=== PATIENT | female | born 1945 | race Caucasian/White ===

== ENCOUNTER 2023-09-04 16:19 | Emergency (ER) | payer MEDICARE, OTHER, SELFPAY ==
[2023-09-04] VITALS (15 sets, daily range): BP systolic 110–158; BP diastolic 64–92; PULSE 77–112; TEMP 37.2; O2SAT 95–100; BMI 17.2
--- NOTE | 2023-09-04 17:17 | ED_ITS ---
HPI HPI - General Adult General Chief complaint: Nausea/Vomiting/Diarrhea Stated complaint: PAIN WHEN USING BATHROOM Time Seen by Provider: 09/04/23 17:04 Source: patient and family Mode of arrival: Wheelchair History of Present Illness HPI narrative: This patient is here with her family. She has never been to this institution before she is got a lot of medical problems. They wonder do to come to a different hospital because they heard there is a different medical staffing here. She is living at home with family but she is gone multitude of medical problems including history of CHF alpha-1 antitrypsin deficiency Raynaud's disease scleroderma. She has been on diuretics and steroids recently. She her main complaint today is that she has rectal pain and having trouble controlling her bowels with diarrhea. She is on chronic oxygen therapy at 4 L. She needs a lot of assistance at home but has not been into an assisted care yet. She says she is too weak to walk and can possibly be discharged home. Patient is also been told that just recently her white blood cell count was elevated and they were concerned about infection Records were obtained from [place] that indicates she has a history of heart failure, had pericardial effusion, has COPD and pulmonary hypertension/emphysema. Related Data Allergies Allergy/AdvReac Type Severity Reaction Status Date / Time codeine Allergy Unknown Verified 09/04/23 16:40 erythromycin base Allergy Unknown Verified 09/04/23 16:43 meperidine [From Demerol] Allergy Unknown Verified 09/04/23 16:40 neomycin Allergy Unknown Verified 09/04/23 16:40 Opioid HPI Opioid Management Most Recent Opioid Data: Last ED Pain Assessment 09/04/23 18:19 Exam Narrative Exam Narrative: Awake alert delirious appears stated age both acute and chronically ill. She actually has a Raynaud's phenomenon of her left hand right now. She says it gets like that when he gets cold. Here however she actually is a good historian. She is not confused no altered mental status. She denies any headache or neck pain. She has no nuchal rigidity. HEENT shows evidence of anemia and decreased hydration status. Her lungs were clear with some scattered rhonchi. Heart sounds are regular with a rate of 105 tachycardic but I do not hear a murmur or gallop. Belly is soft and supple with no tenderness guarding o r rebound. She is very thin and cachectic. Her legs show decreased skin turgor. No edema. Pulses are present. Neurological examination shows no focal neurological deficits. Rectal examination shows soft brown stool at the rectal ampulla and a little bit of perianal ulceration. There is no active bleeding. Constitutional Vital Signs, click to edit/add: Last Vital Signs Temp 98.9 F 09/04/23 16:34 Pulse 92 H 09/04/23 18:07 Resp 15 09/04/23 18:07 BP 122/78 09/04/23 18:00 Pulse Ox 98 09/04/23 18:07 O2 Flow Rate 4 09/04/23 18:07 Course Vital Signs Vital signs: Vital Signs Temperature 98.9 F 09/04/23 16:34 Pulse Rate 80 09/04/23 16:34 Respiratory Rate 16 09/04/23 16:34 Blood Pressure 114/82 09/04/23 16:34 Temperature 98.9 F 09/04/23 16:34 Pulse Rate 92 H 09/04/23 18:07 Respiratory Rate 15 09/04/23 18:07 Blood Pressure 122/78 09/04/23 18:00 Pulse Oximetry 98 09/04/23 18:07 Oxygen Delivery Flow Rate 4 09/04/23 18:07 Medical Decision Making Lab Data Labs: Lab Results 09/04/23 09/04/23 Range/Units 17:41 17:50 WBC 37.1 H* (4.0-11.0) 10^3/uL RBC 4.61 (4.20-5.40) 10^6/uL Hgb 14.4 (12.0-16.0) g/dL Hct 42.5 (36.0-48.0) % MCV 92.2 (81.0-99.0) fL MCH 31.2 (26.7-34.0) pg MCHC 33.9 (29.9-35.2) g/dL RDW 14.3 (11.0-15.0) % Plt Count 210 (150-450) 10^3/uL MPV 10.3 (9.5-13.5) fL Urine Color Yellow (YELLOW) Urine Clarity Clear (CLEAR) Urine pH 6.0 (5.0-9.0) Ur Specific [place] 1.020 (1.005-1.025) Urine Protein Negative (NEG/TRACE) mg/dL Urine Glucose (UA) 500 A (NEGATIVE) mg/dL Urine Ketones Negative (NEGATIVE) mg/dL Urine Occult Blood Negative (NEGATIVE) Urine Nitrite Negative (NEGATIVE) Urine Bilirubin Negative (NEGATIVE) Urine Urobilinogen 0.2 (0.2-1.0) EU/dL Ur Leukocyte Esterase Negative (NEGATIVE) Discharge Plan Discharge Chief Complaint: Nausea/Vomiting/Diarrhea Clinical Impression: Weakness Patient Disposition: Still a Patient Print Language: Kinyarwanda Referrals: Eula Zaragoza [employer] [Primary Care Provider] - 1 week
--- NOTE | 2023-09-04 17:18 | ECG_ITS ---
The [facility] Test Date: 2023-09-04 Pat Name: ANSHU NEVILLE Department: Room: - Gender: Female [employer]: : 1945 Requested By: Order Number: [id number] Reading MD: ABEL RECINOS Measurements Intervals [place] Rate: 105 P: 60 AL: 132 QRS: 194 QRSD: 88 T: 67 QT: 342 QTc: 403 Interpretive Statements 1120 Sinus tachycardia 1570 with occasional ventricular premature complexes 5130 Right ventricular hypertrophy 9150 abnormal ECG No previous ECG available for comparison Electronically Signed On 09-05-2023 8:06:59 EDT by ABEL RECINOS
--- NOTE | 2023-09-04 17:18 | XR_ITS ---
The [address] [address] Patient Name: ANSHU NEVILLE MRN: [id number] date: 1945 Sex: F Assigned Patient Location: ER Current Patient Location: ED.MAIN Accession/Order Number: [id number] Exam Date: 09/04/2023 17:44 Report Date: 09/04/2023 18:56 At the request of: DARA NG Procedure: XR chest 1V EXAM: XR chest 1V HISTORY: Congestive heart failure; technologist notes state congestive heart failure and diarrhea. COMPARISON: Chest radiograph dated 01/09/2016. TECHNIQUE: AP erect portable views of the chest performed. FINDINGS: The trachea is unremarkable. The heart size is upper limits of normal to slightly prominent. There is mild atheromatous calcification along the thoracic aorta. There is mild patchy consolidation at the right lung base. There is no pleural effusion or pulmonary vascular congestion. There is no pneumothorax or acute osseous and amount he. The bony structures are osteopenic. There is slight dextro scoliosis of the thoracic spine. XR/XR chest 1V IMPRESSION: There is mild patchy opacity at the right lung base. There is no pleural effusion or pulmonary vascular congestion. Electronically authenticated by: AURA DONALDSON Date: 09/04/2023 18:56
[2023-09-04] MEDS: MORPHINE SULFATE 2 MG/ML SYRINGE IV (17:35)
[2023-09-04] MEDS: 0.9 % SODIUM CHLORIDE 1,000 ML 999 ML IV (17:35)
[2023-09-04 18:02] LABS: Hematocrit 42.5 % (36.0-48.0); Hemoglobin 14.4 g/dL (12.0-16.0); Mean Corpuscular HGB Conc 33.9 g/dL (29.9-35.2); Mean Corpuscular Hemoglobin 31.2 pg (26.7-34.0); Mean Corpuscular Volume 92.2 fL (81.0-99.0); Mean Platelet Volume 10.3 fL (9.5-13.5); Platelet Count 210 10^3/uL (150-450); Red Blood Count 4.61 10^6/uL (4.20-5.40); Red Cell Distribution Width 14.3 % (11.0-15.0)
[2023-09-04 18:05] LABS: Bilirubin Urine NEGATIVE (NEGATIVE); Blood Urine NEGATIVE (NEGATIVE); Clarity Urine CLEAR (CLEAR); Color Urine YELLOW (YELLOW); Glucose Urine UA 500 mg/dL (NEGATIVE); Ketones Urine NEGATIVE (NEGATIVE); Leukocyte Esterase Urine NEGATIVE (NEGATIVE); Nitrite Urine NEGATIVE (NEGATIVE); Protein Urine NEGATIVE (NEG/TRACE); Urobilinogen Urine 0.2 EU/dL (0.2-1.0)
[2023-09-04 18:06] LABS: Urine Microscopic Indicated NO
[2023-09-04 18:27] LABS: INR 1.07; Prothrombin Time 11.3 sec (9.0-11.6)
[2023-09-04 18:28] LABS: White Blood Count 37.1 10^3/uL (4.0-11.0)
[2023-09-04] MEDS: ONDANSETRON PF 4 MG/2 ML VIAL IV (18:29)
[2023-09-04 18:35] LABS: Alanine Aminotransferase 89 U/L (14-59); Albumin Globulin Ratio 0.9; Alkaline Phosphatase 233 U/L (46-116); Anion Gap 9.1; Aspartate Amino Transferase 64 U/L (15-37); BUN Creatinine Ratio 39.4; Bilirubin Total 0.9 mg/dL (0.2-1.0); Calcium 9.1 mg/dL (8.5-10.1); Carbon Dioxide 33.6 mmol/L (21.0-32.0); Chloride 94 mmol/L (98-107); Estimated GFR (African America >60 (>=60); Estimated GFR (Non-African Ame 51 (>=60); Globulin 3.3 g/dL; Glucose 126 mg/dL (74-106); Potassium 3.7 mmol/L (3.5-5.1); Sodium 133 mmol/L (136-145); Total Protein 6.3 g/dL (6.4-8.2)
[2023-09-04 18:49] LABS: Lactate/Lactic Acid 2.3 mmol/L (0.4-2.0); Troponin I High Sensitivity 85.2 pg/mL (4.0-51.3)
[2023-09-04 18:50] LABS: C Reactive Protein 17.57 mg/dL (<=0.50)
[2023-09-04 18:54] LABS: Atypical Lymphocytes Abs Man 0.37; Band Neutrophils Absolute 0.4 10^3/uL (0.0-0.3); Lymphocytes Absolute Manual 1.11 10^3/uL (1.20-3.80); Monocytes Absolute Manual 1.85 10^3/uL (0.30-0.80); Segmented Neut Absolute Manual 33.39 10^3/uL (1.4-6.5)
[2023-09-04 19:41] LABS: Lactate/Lactic Acid 2.8 mmol/L (0.4-2.0)
--- NOTE | 2023-09-04 19:48 | XR_ITS ---
The [place] [id number] Patient Name: ANSHU NEVILLE MRN: [id number] date: 1945 Sex: F Assigned Patient Location: ER Current Patient Location: ER Accession/Order Number: [id number] Exam Date: 09/04/2023 20:04 Report Date: 09/04/2023 21:14 At the request of: FADY SPARROW Procedure: XR abdomen min 2V EXAM: XR abdomen min 2V HISTORY: constipation COMPARISON: None. TECHNIQUE: Supine and upright KUB. FINDINGS: Large amount of gas and stool throughout the colon. Stool prominent in the cecum and rectum possible fecal impaction the rectum. Prominent gas in the transverse colon left colon. No air-fluid level or free air on the upright view. No small bowel or gastric distention. A few phleboliths seen in the bony pelvis. Lung bases clear. Degenerative changes lumbar spine with mild rotatory scoliosis XR/XR abdomen min 2V IMPRESSION: Prominent gas and stool in the colon with large amount of stool the rectum, question fecal impaction. No small bowel distention or evidence of small bowel obstruction Electronically authenticated by: ALEXIS HERNANDEZ Date: 09/04/2023 21:14
--- NOTE | 2023-09-04 21:43 | PC.NURSE ---
dr. leary manually removed stool from pt and she tolerated well
[2023-09-05] VITALS (14 sets, daily range): BP systolic 111–141; BP diastolic 67–95; PULSE 95–106; TEMP 36.9; O2SAT 96–99
--- NOTE | 2023-09-05 00:42 | PC.NURSE ---
bed change completed pt in room drinking water and eating some pudding
--- NOTE | 2023-09-05 01:11 | PC.NURSE ---
[facility] called and they are busy at the moment with trauma pt will call back
[2023-09-05 02:09] LABS: Troponin I High Sensitivity 70.1 pg/mL (4.0-51.3)
--- NOTE | 2023-09-05 02:09 | PC.NURSE ---
[facility] accepts pt but we will not have transport until morning
--- NOTE | 2023-09-05 02:12 | PC.NURSE ---
pts buttock is red and nonblanchable pt turned side two side every two hours, pts feet are purple in color and cold to the touch
--- NOTE | 2023-09-05 04:52 | PC.NURSE ---
pt positioned on her back for comfort
--- NOTE | 2023-09-05 06:00 | PC.NURSE ---
pt had loose stool and urine pilo care preformed pt turned on her left side
[2023-09-05 07:22] LABS: Lactate/Lactic Acid 1.1 mmol/L (0.4-2.0)
[2023-09-05 07:41] LABS: Glucometer 71 mg/dL (74-106)
[2023-09-05 07:56] LABS: Glucometer 100 mg/dL (74-106)
[2023-09-05] MEDS: ONDANSETRON PF 4 MG/2 ML VIAL IV (07:56)
[2023-09-05] MEDS: DEXTROSE 50 %-WATER 25 GM/50 ML SYRINGE 25 ML IV (07:57)
== END 2023-09-05 08:00 | disposition short-term general hospital (02) ==
PROVIDERS: Emergency Medicine Emergency Medical Services; Emergency Provider Internal Medicine; PCP Nurse Practitioner
DX: K59.00 Constipation, unspecified (principal); R79.89 Other specified abnormal findings of blood chemistry; R53.1 Weakness; I50.9 Heart failure, unspecified; E88.01 Alpha-1-antitrypsin deficiency; I73.00 Raynaud's syndrome without gangrene; M34.9 Systemic sclerosis, unspecified; Z99.81 Dependence on supplemental oxygen; I27.20 Pulmonary hypertension, unspecified; J43.9 Emphysema, unspecified
CPT/HCPCS: 36415; 36416; 71045; 74019; 80053; 81003; 83605; 83690; 83880; 84443; 84484; 85007; 85027; 85610; 86140; 93005; 96361; 96374; 96375; 96376; 99285; J2270; J2405